=== PATIENT | female | born 1950 | race African-American/Black ===

== ENCOUNTER 2022-01-25 14:01 | Observation (INO) | payer OTHER ==
[2022-01-25 14:34] VITALS: BMI 36.8
[2022-01-25 15:38] LABS: BASO % 0.7 % (0-2.0); EOS % 2.8 % (0-4.5); HEMOGLOBIN 11.1 GM/dL (10.7-15.3); LYMPH % 36.5 % (8-40); MCH 23.3 pg (25.7-33.7); MCHC 30.9 g/dl (32.0-36.0); MEAN CELL VOLUME 75.4 fl (80-96); MONO % 11.2 % (3.8-10.2); NEUT % 48.8 % (42.8-82.8); PLATELET COUNT 184 10^3/uL (134-434); RBC 4.78 M/mm3 (3.60-5.2); RDW 14.3 % (11.6-15.6); WHITE BLOOD COUNT 4.5 K/mm3 (4.0-10.0)
[2022-01-25 15:45] LABS: EPI CELLS 25 /uL (0-25.1); HYALINE CASTS 0 /uL (0-3.1); PH,URINE 5.5 (5.0-8.0); URINE APPEARANCE CLEAR; URINE BACTERIA 833 /uL (0-1359); URINE BILIRUBIN NEGATIVE (NEGATIVE); URINE COLOR YELLOW; URINE GLUCOSE (UA) NEGATIVE (NEGATIVE); URINE KETONE TRACE (NEGATIVE); URINE LEUK ESTERASE 1+ (NEGATIVE); URINE NITRITE NEGATIVE (NEGATIVE); URINE PROTEIN NEGATIVE (NEGATIVE); URINE RBC 38 /uL (0-23.9); URINE UROBILINOGEN 0.2 mg/dL (0.2-1.0); URINE WBC 54 /uL (0-25.8)
[2022-01-25 15:45] LABS: INR 1.1 (0.83-1.09); PROTHROMBIN TIME (PATIENT) 12.7 SEC (9.7-13.0)
[2022-01-25 15:47] LABS: ACTIVATED PTT 35.8 SECONDS (25.2-36.5)
[2022-01-25 15:54] LABS: CALCIUM 9.5 mg/dL (8.5-10.1)
[2022-01-25 15:55] LABS: ALBUMIN 4.2 g/dl (3.4-5.0)
[2022-01-25 15:56] LABS: BLOOD UREA NITROGEN 21.4 mg/dL (7-18)
[2022-01-25 15:58] LABS: CREATININE 1.1 mg/dL (0.55-1.3)
[2022-01-25] MEDS ORDERED: CEFTRIAXONE 1 GM in DEXTROSE 5%-WATER - 50 ML IVPB ONE ×2 (15:59→16:15)
[2022-01-25 16:01] LABS: BILIRUBIN,TOTAL 0.4 mg/dL (0.2-1)
[2022-01-25] MEDS ORDERED: CEFTRIAXONE 1 GM/50 ML BAG ONE ×2 (16:16→17:50)
[2022-01-25] MEDS ORDERED: ASPIRIN 81 MG CHEWABLE TABLETS PO ONE (17:30)
[2022-01-25] MEDS ORDERED: ASPIRIN 81 MG CHEWABLE TABLETS ONE (17:50)
[2022-01-26] MEDS ORDERED: AZTREONAM 1 GM in DEXTROSE 5%-WATER - 50 ML IVPB SCH ×3 (01:00→10:00)
[2022-01-26] MEDS ORDERED: AZTREONAM 1 GM VIAL (RESTRICTED TO ID) ONE (07:32)
[2022-01-26 07:59] LABS: BASO % 0.5 % (0-2.0); EOS % 3.5 % (0-4.5); HEMATOCRIT 34.6 % (32.4-45.2); LYMPH % 42.5 % (8-40); MCHC 31.8 g/dl (32.0-36.0); MEAN CELL VOLUME 75.4 fl (80-96); MEAN PLT VOLUME 9.3 fl (7.5-11.1); MONO % 10.2 % (3.8-10.2); NEUT % 43.3 % (42.8-82.8); PLATELET COUNT 164 10^3/uL (134-434); RBC 4.58 M/mm3 (3.60-5.2); RDW 14.2 % (11.6-15.6)
[2022-01-26 08:17] LABS: CALCIUM 8.9 mg/dL (8.5-10.1)
[2022-01-26 08:18] LABS: ALBUMIN 3.9 g/dl (3.4-5.0); BLOOD UREA NITROGEN 22.5 mg/dL (7-18); MAGNESIUM 1.9 mg/dL (1.8-2.4)
[2022-01-26 08:20] LABS: CREATININE 1.3 mg/dL (0.55-1.3)
[2022-01-26 08:21] LABS: PHOSPHOROUS 4.3 mg/dL (2.5-4.9)
[2022-01-26 08:22] LABS: BILIRUBIN,TOTAL 0.3 mg/dL (0.2-1); TOT PROT 7.7 g/dl (6.4-8.2)
[2022-01-26] MEDS ORDERED: ENOXAPARIN NA (PORCINE) 40 MG/0.4 ML DISP.SYRIN SQ ONE (09:59)
[2022-01-26] MEDS ORDERED: ASPIRIN 81 MG CHEWABLE TABLETS ONE (09:59)
[2022-01-26] MEDS: ENOXAPARIN NA (PORCINE) 40 MG/0.4 ML DISP.SYRIN SQ SCH (10:08)
[2022-01-26] MEDS: ASPIRIN 81 MG CHEWABLE TABLETS PO SCH (10:08)
[2022-01-26] MEDS: CARVEDILOL 12.5 MG TABLET (FP) PO SCH (21:25)
[2022-01-26] MEDS: LOSARTAN POTASSIUM 50 MG TABLET PO SCH (21:25)
[2022-01-26] MEDS: ATORVASTATIN CA 40 MG TABLET (FP) PO SCH ×2 (21:26→21:37)
[2022-01-27 07:27] LABS: LDH 212 U/L (84-246)
[2022-01-27 09:05] LABS: BASO % 0.7 % (0-2.0); EOS % 3.9 % (0-4.5); HEMATOCRIT 36.7 % (32.4-45.2); HEMOGLOBIN 11.3 GM/dL (10.7-15.3); LYMPH % 46.4 % (8-40); MCH 23.5 pg (25.7-33.7); MCHC 30.9 g/dl (32.0-36.0); MEAN CELL VOLUME 76.1 fl (80-96); MEAN PLT VOLUME 10.2 fl (7.5-11.1); MONO % 12.3 % (3.8-10.2); NEUT % 36.7 % (42.8-82.8); PLATELET COUNT 166 10^3/uL (134-434); RBC 4.82 M/mm3 (3.60-5.2); RDW 14.4 % (11.6-15.6); WHITE BLOOD COUNT 3.7 K/mm3 (4.0-10.0)
[2022-01-27 09:41] LABS: CHLORIDE 108 mmol/L (98-107); SODIUM 142 mmol/L (136-145)
[2022-01-27 09:43] LABS: ANION GAP 10 MMOL/L (8-16); BLOOD UREA NITROGEN 25.4 mg/dL (7-18); CALCIUM 8.9 mg/dL (8.5-10.1); CO2 24 mmol/L (21-32); GLUCOSE,RANDOM 87 mg/dL (74-106)
[2022-01-27 09:46] LABS: CREATININE 1.2 mg/dL (0.55-1.3)
[2022-01-27] MEDS: ENOXAPARIN NA (PORCINE) 40 MG/0.4 ML DISP.SYRIN SQ SCH (09:52)
[2022-01-27] MEDS: HYDROCHLOROTHIAZIDE 25 MG TABLET (FP) PO SCH (09:52)
[2022-01-27] MEDS: ASPIRIN 81 MG CHEWABLE TABLETS PO SCH (09:52)
[2022-01-27] MEDS ORDERED: AZELASTINE HCL OU SCH (10:00)
[2022-01-27] MEDS: SPIRONOLACTONE 25 MG TABLET PO SCH (12:05)
[2022-01-27] MEDS: LOSARTAN POTASSIUM 50 MG TABLET PO SCH ×2 (12:05→21:33)
[2022-01-27] MEDS: CARVEDILOL 12.5 MG TABLET (FP) PO SCH (12:05)
[2022-01-27] MEDS: ATORVASTATIN CA 40 MG TABLET (FP) PO SCH (21:33)
[2022-01-27] MEDS: DIVALPROEX NA *ER* EXTEND REL 500 MG TABLET.SA (FP) PO SCH (21:37)
[2022-01-27] MEDS ORDERED: CARVEDILOL 6.25 MG TABLET (FP) PO SCH (22:00)
[2022-01-28 08:11] LABS: BASO % 0.7 % (0-2.0); EOS % 2.8 % (0-4.5); HEMATOCRIT 34.4 % (32.4-45.2); LYMPH % 42.8 % (8-40); MCHC 31.8 g/dl (32.0-36.0); MEAN CELL VOLUME 75.4 fl (80-96); MEAN PLT VOLUME 9.8 fl (7.5-11.1); MONO % 14.4 % (3.8-10.2); NEUT % 39.3 % (42.8-82.8); PLATELET COUNT 161 10^3/uL (134-434); RBC 4.57 M/mm3 (3.60-5.2); RDW 14.2 % (11.6-15.6); WHITE BLOOD COUNT 3.4 K/mm3 (4.0-10.0)
[2022-01-28 08:41] LABS: BLOOD UREA NITROGEN 28.8 mg/dL (7-18)
[2022-01-28 08:45] LABS: CALCIUM 9.1 mg/dL (8.5-10.1)
[2022-01-28 08:47] LABS: CREATININE 1.1 mg/dL (0.55-1.3)
[2022-01-28 09:34] VITALS: RESP 18; TEMP 97.8
[2022-01-28] MEDS: SPIRONOLACTONE 25 MG TABLET PO SCH (09:44)
[2022-01-28] MEDS: ASPIRIN 81 MG CHEWABLE TABLETS PO SCH (09:44)
[2022-01-28] MEDS: ENOXAPARIN NA (PORCINE) 40 MG/0.4 ML DISP.SYRIN SQ SCH (09:45)
[2022-01-28] MEDS: HYDROCHLOROTHIAZIDE 25 MG TABLET (FP) PO SCH (09:45)
[2022-01-28] MEDS: DIVALPROEX NA *ER* EXTEND REL 500 MG TABLET.SA (FP) PO SCH (09:45)
[2022-01-28] MEDS ORDERED: CARVEDILOL 12.5 MG TABLET (FP) PO SCH (10:00)
[2022-01-28 11:29] VITALS: BP 117/74; PULSE 56
[2022-01-28] MEDS: LOSARTAN POTASSIUM 50 MG TABLET PO SCH (11:30)
== END 2022-01-28 15:41 | disposition home or self-care (01) ==
LOC: JER 14:01 → INTOOBSV 15:38 → JERBED 15:38 → J4W 01-26 11:20
PROVIDERS: ADMIT Internal Medicine; ATTEND Internal Medicine
PROC: 3E03329 Introduction of Other Anti-infective into Peripheral Vein, Percutaneous Approach (ICD-10-PCS; principal; 2022-01-25)
PROC: 3E03329 Introduction of Other Anti-infective into Peripheral Vein, Percutaneous Approach (ICD-10-PCS; 2022-01-25)
PROC: 3E023GC Introduction of Other Therapeutic Substance into Muscle, Percutaneous Approach (ICD-10-PCS; 2022-01-25)
DX: N34.2 Other urethritis (principal); R00.1 Bradycardia, unspecified; R94.31 Abnormal electrocardiogram [ECG] [EKG]; Z88.8 Allergy status to other drugs, medicaments and biological substances; Z88.0 Allergy status to penicillin; E78.00 Pure hypercholesterolemia, unspecified; I25.10 Atherosclerotic heart disease of native coronary artery without angina pectoris; N18.9 Chronic kidney disease, unspecified
CPT/HCPCS: 0241U-QW; 36415; 70450-TC; 70547-TC; 70551-TC; 80048; 80053; 80061; 81003; 82550; 82553; 82962; 83036; 83540; 83550; 83615; 83735; 84100; 84443; 84484; 85025; 85610; 85651; 85730; 86140; 86850; 86900; 86901; 93005; 93010; 93880-TC; 96365; 96367; 96372; 97116-GP; 97161-GP; 99285-25; G0378

== ENCOUNTER 2024-01-13 19:36 | Emergency (ER) | payer OTHER ==
[2024-01-13 19:46] VITALS: BP 134/71; PULSE 98; RESP 20; TEMP 98.1; BMI 37.1
== END 2024-01-13 23:00 | disposition home or self-care (01) ==
LOC: JER 19:36
DX: S02.2XXA Fracture of nasal bones, initial encounter for closed fracture (principal); W01.0XXA Fall on same level from slipping, tripping and stumbling without subsequent striking against object, initial encounter
CPT/HCPCS: 70160-TC-FY; 70450-TC; 93005; 93010; 99284-25